=== PATIENT | female | born 1965 | race African-American/Black ===

== ENCOUNTER 2024-05-01 15:37 | Emergency (ER) | payer OTHER | END 2024-05-01 18:12 | disposition home or self-care (01) | LOC: ERS 15:37 | DX: H66.91 Otitis media, unspecified, right ear (principal); H60.91 Unspecified otitis externa, right ear; I10 Essential (primary) hypertension; E78.5 Hyperlipidemia, unspecified | CPT/HCPCS: 99282 ==